=== PATIENT | female | born 1990 | race Caucasian/White ===

== ENCOUNTER 2017-05-10 13:20 | Emergency (ER) | payer SELFPAY ==
--- NOTE | 2017-05-10 14:23 | RAD ---
RIGHT HAND 3 VIEWS: HISTORY: Trauma. COMPARISON: None. FINDINGS: No acute fracture or malalignment. IMPRESSION: No acute fracture or malalignment. POS: [facility]
[2017-05-10] MEDS ORDERED: Naproxen 500 MG TAB ONE (14:39)
[2017-05-10] MEDS ORDERED: HYDROcodone/Acetaminophen 10/325 mg Tablet ONE (14:39)
== END 2017-05-10 14:40 | disposition home or self-care (01) ==
LOC: MADERS 13:20
DX: S60.221A Contusion of right hand, initial encounter (principal); E66.9 Obesity, unspecified; F17.210 Nicotine dependence, cigarettes, uncomplicated; W22.01XA Walked into wall, initial encounter

== ENCOUNTER 2017-12-26 20:25 | Emergency (ER) | payer SELFPAY ==
[2017-12-26] MEDS ORDERED: predniSONE 20 MG TAB ONE ×2 (22:03→22:06)
[2017-12-26] MEDS ORDERED: Benzonatate 100 MG CAP ONE (22:03)
[2017-12-26] MEDS ORDERED: AMOXicillin 250 MG CAP ONE (22:03)
== END 2017-12-26 22:24 | disposition home or self-care (01) ==
LOC: MADERS 20:25
DX: J20.9 Acute bronchitis, unspecified (principal); E66.9 Obesity, unspecified; E28.2 Polycystic ovarian syndrome; F17.210 Nicotine dependence, cigarettes, uncomplicated; Z79.84 Long term (current) use of oral hypoglycemic drugs
CPT/HCPCS: 87081; 87430; 87804; 99283; J7506